=== PATIENT | male | born 1985 | race African-American/Black ===

== ENCOUNTER → 2021-07-12 | Outpatient (CLI) | payer OTHER ==
--- NOTE | 2021-07-13 14:51 | EEG ---
DATE OF SERVICE: 07/12/2021 ELECTROENCEPHALOGRAM REPORT EEG NUMBER: This is EEG #[id number] performed on 07/12/2021. OBJECTIVE: The patient is a 35-year-old male with epilepsy. DESCRIPTION: This is a digital study. Electrodes are placed according to the international 10-20 system. Bipolar and referential montages are available. Activation procedures typically include hyperventilation and intermittent photic stimulation. INTERPRETATION: The waking background consists of 9-10 Hz, 50-100 microvolt activity, symmetrically distributed over parieto-occipital regions and reactive to eye opening. Hyperventilation and intermittent photic stimulation are noncontributory. Stage 1 sleep is achieved with normal electroencephalogram patterns. IMPRESSION: This electroencephalogram with the patient awake and asleep is within normal limits. There is no focal, paroxysmal or epileptiform activity. Thank you for letting us help with the patient's care. BUBBA DR: Randall TID: [id number] CC: [facility]
== END ==
LOC: RT 10:09
PROVIDERS: ATTEND Psychiatry & Neurology Neurology with Special Qualifications in Child Neurology
DX: G40.319 Generalized idiopathic epilepsy and epileptic syndromes, intractable, without status epilepticus (principal)
CPT/HCPCS: 95816

== ENCOUNTER → 2021-07-25 | Outpatient (CLI) | payer OTHER ==
--- NOTE | 2021-07-25 11:44 | KCIC ---
EXAMINATION: Magnetic resonance imaging (MRI) of the brain and brainstem without contrast 07/25/2021 8 :11 AM HISTORY: Convulsive epilepsy, TBI TECHNIQUE: Multiplanar multi-weighted MRI of the brain and brainstem was performed without intravenou s contrast using the seizure brain protocol. COMPARISON: None available. FINDINGS: Evaluation degraded by motion artifact. The scalp and calvarium are normal. The superior sagittal sinus demonstrates normal venous flow. The corpus callosum is normal in shape and signal intensity. The posterior fossa is unremarkable. The p ituitary and sella are normal. The brainstem and craniocervical junction are unremarkable. Hippocamp i appear symmetric in signal intensity and morphology. There is no heterotopic french matter. No malfor mation of cortical development. Diffusion weighted images reveal no hyperintensities to suggest acute cerebral infarction. The suscep tibility weighted sequences reveal no evidence of acute or chronic hemorrhage. The ventricles are nor mal in size and position without evidence of hydrocephalus. The paranasal sinuses are normal. The visualized portions of the mastoids are unremarkable. The orbi ts appear normal. Normal flow voids are demonstrated in the carotid arteries and basilar artery. IMPRESSION: Evaluation degraded by motion artifact. No structural abnormality to account for patient's seizures. No evidence for acute or subacute ischem ia. Electronically signed by: Arianna Aguilar MD (07/25/2021 11:41 AM) [id number]
== END ==
LOC: KCIC MRI 07:56 → EDUNIT# 08:00
PROVIDERS: ATTEND Psychiatry & Neurology Neurology with Special Qualifications in Child Neurology
DX: G40.319 Generalized idiopathic epilepsy and epileptic syndromes, intractable, without status epilepticus (principal)
CPT/HCPCS: 70551